=== PATIENT | female | born 1950 | race Caucasian/White ===

== ENCOUNTER → 2023-12-24 11:52 | Outpatient (REF) | payer MEDICARE, SELFPAY ==
[2023-12-24 12:40] LABS: % Eosinophils 26.6 % (0-6); % Immature Granulocytes 0.3 % (0-0.5); % Monocytes 5.7 % (1.7-9.3); % Neutrophils 45.4 % (42.2-75.2); Absolute Basophils 0.1 10^3/uL (0-0.2); Absolute Eosinophils 1.6 10^3/uL (0-0.7); Absolute Lymphocytes 1.3 10^3/uL (1.2-3.4); Absolute Monocytes 0.4 10^3/uL (0.1-0.6); Absolute Neutrophils 2.8 10^3/uL (1.4-6.5); Hematocrit 38.2 % (37.0-47.0); Hemoglobin 12.3 g/dL (12.0-16.0); Mean Corp Hgb Conc. 32.2 g/dL (33.0-37.0); Mean Corpuscular Hgb 29.1 pg (27.0-31.0); Mean Corpuscular Volume 90.5 fL (81.0-99.0); Mean Platelet Volume 9.8 fL (7.4-10.4); Nucleated Red Blood Cells % 0 %; Platelet Count 277 10^3/uL (130-400); Red Blood Cell Count 4.22 10^6/uL (4.20-5.40); Red Cell Dist. Width 14.9 % (11.5-14.5); White Blood Cell Count 6.1 10^3/uL (4.8-10.8)
[2023-12-24 12:53] LABS: ALT (SGPT) 14 U/L (0-35); AST (SGOT) 24 U/L (14-36); Albumin 3.9 g/dl (3.5-5.0); Alkaline Phosphatase 83 U/L (38-126); Blood Urea Nitrogen 20 mg/dl (7-17); Calcium 10.5 mg/dl (8.4-10.2); Carbon Dioxide 24 mmol/L (22-30); Chloride 110 mmol/L (98-107); Glucose 83 mg/dl (70-99); HDL Cholesterol 68 mg/dl; Iron 90 ug/dl (37-170); LDL Cholesterol, Calculated 48 mg/dl; Potassium 4.3 mmol/L (3.5-5.1); Sodium 137 mmol/L (135-145); Total Bilirubin 0.5 mg/dl (0.2-1.3); Total Cholesterol 135 mg/dl (50-199); Total Protein 6.5 g/dl (6.3-8.2); Triglyceride 97 mg/dl (10-149); Very Low Density Lipoprotein 19 mg/dl (0-30); eGFR 59.49
[2023-12-24 13:02] LABS: Percent Saturation 22 % (20-50); Total Iron Binding Capacity 398 ug/dl (265-497)
== END ==
LOC: REG 11:52
PROVIDERS: ATTENDING PHYSICIAN Student in an Organized Health Care Education/Training Program
DX: D50.0 Iron deficiency anemia secondary to blood loss (chronic) (principal); E78.5 Hyperlipidemia, unspecified; I10 Essential (primary) hypertension; Z00.00 Encounter for general adult medical examination without abnormal findings
CPT/HCPCS: 36415; 80053; 80061; 83540; 83550; 85025

== ENCOUNTER 2025-04-03 16:49 | Inpatient (IN) | payer MEDICARE, SELFPAY ==
[2025-04-03] VITALS (11 sets, daily range): BP systolic 113–183; BP diastolic 60–80; BMI 29.2
--- NOTE | 2025-04-03 09:45 | ED.GENMED ---
History of Present Illness
<MARCIN Yo - Last Filed: 04/03/25 18:19>
General
Chief Complaint: Breathing Problem
Source: patient
Exam Limitations: none and other
Time Seen by Provider: 04/03/25 09:28
Nursing documentation reviewed up to this point in time: agreed with
History of Present Illness
History of Present Illness:
Patient is a 74-year-old female with past medical history of MS(not currently on any medications) abdominal aortic aneurysm (diagnosed 20 years ago )which was managed with blood pressure control and not surgery, reflux presents to the ER for
evaluation. Patient ports intermittently this week she has felt like she could not get a good breath of air in and today had shortness of breath prior to arrival. She has also had heart racing/palpitations sensation.
Patient denies any associated chest pain. In addition she complains of a sensation that' blood was rushing to my abdomen.
She believes she is on amlodipine as well as metoprolol
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
Past History
<MARCIN Yo - Last Filed: 04/03/25 18:19>
Past History
ED Past Medical History: GERD, HTN, Hypercholesterolemia, Other (MS, TIA,), Other (Ischemic colitis) and Other (Left bundle branch block, anemia)
ED Past Surgical History: Gynecological
Social History
Tobacco: Former smoker
Alcohol: Occasional
Drug: None
Personal:
Living: with family
Employment: Employed
Family History
Family History: Other
Review of Systems
<MARCIN Yo - Last Filed: 04/03/25 18:19>
Review of Systems
Allergies reviewed?: Yes
All Other Systems: ROS reviewed and negative except as documented in HPI and ROS
Constitutional: Reports no symptoms
Respiratory: Reports trouble breathing
Cardiac: Reports palpitations; Denies chest pain
ABD/GI: Reports no symptoms
: Reports no symptoms
Musculoskeletal: Reports no symptoms
Skin: Reports no symptoms
Neurological: Reports no symptoms
Psychiatric: Reports no symptoms
Phy Exam
<MARCIN Yo - Last Filed: 04/03/25 18:19>
General Physical Exam
General Presentation: no apparent distress
General age: appears stated age
General Skin: warm and dry
General Habitus: normal
General Mental: alert
General Hydration: appears well hydrated
Cardiovascular Exam
Cardiovascular Exam: regular rate/rhythm, no murmur and normal peripheral pulses
Pulmonary Exam
Pulmonary Exam: lungs clear and no respiratory distress
Gastrointestinal Exam
Gastrointestinal Exam: normal bowel sounds, non tender and soft
Neurological Exam
Neurological Exam: alert and oriented x3
Musculoskeletal Exam
Musculoskeletal Exam: full ROM
Skin Exam
Skin Exam: normal color and warm/dry
Psychiatric Exam
Psychiatric Exam: normal mood/affect
Scores
<MARCIN Yo - Last Filed: 04/03/25 18:19>
Heart Failure Risk
Heart Failure Risk Score: Not Applicable
Course
<MARCIN Yo - Last Filed: 04/03/25 18:19>
Orders/Labs/Results
Orders:
Orders
04/03/25 09:13
Electrocardiogram (*1) Urgent
Reason for Study: Shortness of Breath
EKG- Treatment ONCE
04/03/25 09:43
Type+Screen Urgent
Complete Blood Count/With Diff Urgent
Comprehensive Metabolic Panel Urgent
Free T4 Urgent
NT-proBNP Urgent
Comment: ADDON
TSH Reflex To Free T4 Urgent
Comment: ADD ON
Troponin I Urgent
04/03/25 10:00
Add On- LAB Urgent
Tests Added?: tsh w/refexive t4
04/03/25 10:05
CT Abd/pelvis Angio W/wo Iv Urgent
Comment:
Reason For Exam: hx of AAA abd pain
04/03/25 Dinner
Cholesterol Lowering
At Your Request: Limited Participation
Cholesterol Lowering: Sodium, 2 Gram
04/03/25 15:09
Chest [CR Chest - 2 Views ] Urgent
Comment:
Reason For Exam: sob
04/03/25 16:11
CARDIOLOGY CONSULT Routine
Consulting Provider: Angelo Avila
Was physician already notified: Yes
04/03/25 16:13
Add On- LAB Routine
Tests Added?: proBNP
04/03/25 16:23
Admit/Transfer Patient As Directed
Co-Sign Provider:
Level of Care: Inpatient admission
Assign to:: IVU
Physician / Group: Pratibha/hospitalist
Diagnosis: bradycardia
Reason for Hospitalization: bradycardia
Expected length of stay greater than two midnights?: Yes
ELOS- Estimated Length of Stay in days: 3
I certify the patient meets the requirements for IP care: Yes
PRN Pain Medication Management As Directed
May give lesser potent ordered pain med per pt: Yes
preference::
Protocol:: Medication orders for pain may be administered in a
manner that supports deferring to patient preference
when the pt is:
- Requesting an ordered lesser potent pain medication.
Least to most potent pain medications are defined
as: acetaminophen < NSAID < tramadol < opioids
(morphine, oxycodone, hydromorphone).
- Requesting a lesser dose of the same medication IF
ORDERED.
- Requesting a less intrusive route of administration
if both routes are prescribed by the provider (PO <
IV).
04/03/25 16:24
Code Status As Directed
Resuscitation Status: Full Code
04/03/25 17:55
Acetaminophen [Tylenol] 650 mg PO Q4HPRN PRN
Bisacodyl [Dulcolax] 10 mg RECTAL [id number] PRN
Docusate W/Senna [Senokot-S] 1 tablet PO BIDPRN PRN
Ondansetron Injectable [Zofran] 4 mg IV Q6HPRN PRN
Polyethylene Glycol Powder [Miralax] 17 grams PO DAILYPRN PRN
04/03/25 17:55
Echo 2D MMode Color/Doppler Routine
Reason for Study: bradycardia
Activity As Directed
Activity Level: As Tolerated
Vital Signs As Directed
Frequency: Per unit guidelines
DX Deep Vein Thrombosis Video Routine
04/03/25 18:00
Enoxaparin Sodium [Lovenox] 40 mg SC QPM
04/03/25 22:00
Atorvastatin [Lipitor] 40 mg PO HS
Pantoprazole [Protonix] 40 mg PO HS
04/04/25 06:00
Basic Metabolic Panel IN AM
Complete Blood Count/No Diff IN AM
Magnesium IN AM
04/04/25 08:00
Lisinopril [Zestril] 5 mg PO DAILY
04/05/25 06:00
Basic Metabolic Panel IN AM
Complete Blood Count/No Diff IN AM
04/06/25 06:00
Basic Metabolic Panel IN AM
Complete Blood Count/No Diff IN AM
04/07/25 06:00
Basic Metabolic Panel IN AM
Complete Blood Count/No Diff IN AM
04/08/25 06:00
Basic Metabolic Panel IN AM
Complete Blood Count/No Diff IN AM
04/09/25 06:00
Basic Metabolic Panel IN AM
Complete Blood Count/No Diff IN AM
Abnormal Lab Results
04/03/25
09:43
RBC 3.84 L 10^6/uL
(4.20-5.40)
Hgb 11.4 L g/dL
(12.0-16.0)
Hct 35.3 L %
(37.0-47.0)
MCHC 32.3 L g/dL
(33.0-37.0)
RDW 15.5 H %
(11.5-14.5)
Absolute Eos (auto) 0.8 H 10^3/uL
(0-0.7)
Eosinophils % 14.9 H %
(0-6)
Chloride 109 H mmol/L
(98-107)
BUN 27 H mg/dl
(7-17)
Creatinine 1.1 H mg/dL
(0.6-1.0)
Calcium 10.9 H mg/dl
(8.4-10.2)
Total Protein 5.7 L g/dl
(6.3-8.2)
TSH (Reflex) 4.89 H uIU/ml
(0.47-4.68)
04/03/25 09:43
04/03/25 09:43
Vital Signs
Initial and Last Documented VS:
Initial Vital Signs
Temp Pulse Resp BP Pulse Ox
98.0 F 38 16 113/64 98
04/03/25 09:10 04/03/25 09:10 04/03/25 09:10 04/03/25 09:10 04/03/25 09:10
Last Documented Vital Signs
Temp Pulse Resp BP Pulse Ox
98.0 F 59 14 183/72 99
04/03/25 09:10 04/03/25 16:30 04/03/25 16:30 04/03/25 16:22 04/03/25 16:22
Rn Transition consulted with Physician
Rn Transition consulted with physician?: Yes
Name of Physician Consulted: Laura
<Cash Sanchez MD - Last Filed: 04/03/25 10:34>
Orders/Labs/Results
Orders:
Orders
04/03/25 09:13
Electrocardiogram (*1) Urgent
Reason for Study: Shortness of Breath
EKG- Treatment ONCE
04/03/25 09:43
Type+Screen Urgent
Complete Blood Count/With Diff Urgent
Comprehensive Metabolic Panel Urgent
Free T4 Urgent
NT-proBNP Urgent
Comment: ADDON
TSH Reflex To Free T4 Urgent
Comment: ADD ON
Troponin I Urgent
04/03/25 10:00
Add On- LAB Urgent
Tests Added?: tsh w/refexive t4
04/03/25 10:05
CT Abd/pelvis Angio W/wo Iv Urgent
Comment:
Reason For Exam: hx of AAA abd pain
04/03/25 Dinner
Cholesterol Lowering
At Your Request: Limited Participation
Cholesterol Lowering: Sodium, 2 Gram
04/03/25 15:09
Chest [CR Chest - 2 Views ] Urgent
Comment:
Reason For Exam: sob
04/03/25 16:11
CARDIOLOGY CONSULT Routine
Consulting Provider: Angelo Avila
Was physician already notified: Yes
04/03/25 16:13
Add On- LAB Routine
Tests Added?: proBNP
04/03/25 16:23
Admit/Transfer Patient As Directed
Co-Sign Provider:
Level of Care: Inpatient admission
Assign to:: IVU
Physician / Group: Pratibha/hospitalist
Diagnosis: bradycardia
Reason for Hospitalization: bradycardia
Expected length of stay greater than two midnights?: Yes
ELOS- Estimated Length of Stay in days: 3
I certify the patient meets the requirements for IP care: Yes
PRN Pain Medication Management As Directed
May give lesser potent ordered pain med per pt: Yes
preference::
Protocol:: Medication orders for pain may be administered in a
manner that supports deferring to patient preference
when the pt is:
- Requesting an ordered lesser potent pain medication.
Least to most potent pain medications are defined
as: acetaminophen < NSAID < tramadol < opioids
(morphine, oxycodone, hydromorphone).
- Requesting a lesser dose of the same medication IF
ORDERED.
- Requesting a less intrusive route of administration
if both routes are prescribed by the provider (PO <
IV).
04/03/25 16:24
Code Status As Directed
Resuscitation Status: Full Code
04/03/25 17:55
Acetaminophen [Tylenol] 650 mg PO Q4HPRN PRN
Bisacodyl [Dulcolax] 10 mg RECTAL [id number] PRN
Docusate W/Senna [Senokot-S] 1 tablet PO BIDPRN PRN
Ondansetron Injectable [Zofran] 4 mg IV Q6HPRN PRN
Polyethylene Glycol Powder [Miralax] 17 grams PO DAILYPRN PRN
04/03/25 17:55
Echo 2D MMode Color/Doppler Routine
Reason for Study: bradycardia
Activity As Directed
Activity Level: As Tolerated
Vital Signs As Directed
Frequency: Per unit guidelines
DX Deep Vein Thrombosis Video Routine
04/03/25 18:00
Enoxaparin Sodium [Lovenox] 40 mg SC QPM
04/03/25 22:00
Atorvastatin [Lipitor] 40 mg PO HS
Pantoprazole [Protonix] 40 mg PO HS
04/04/25 06:00
Basic Metabolic Panel IN AM
Complete Blood Count/No Diff IN AM
Magnesium IN AM
04/04/25 08:00
Lisinopril [Zestril] 5 mg PO DAILY
04/05/25 06:00
Basic Metabolic Panel IN AM
Complete Blood Count/No Diff IN AM
04/06/25 06:00
Basic Metabolic Panel IN AM
Complete Blood Count/No Diff IN AM
04/07/25 06:00
Basic Metabolic Panel IN AM
Complete Blood Count/No Diff IN AM
04/08/25 06:00
Basic Metabolic Panel IN AM
Complete Blood Count/No Diff IN AM
04/09/25 06:00
Basic Metabolic Panel IN AM
Complete Blood Count/No Diff IN AM
Abnormal Lab Results
04/03/25
09:43
RBC 3.84 L 10^6/uL
(4.20-5.40)
Hgb 11.4 L g/dL
(12.0-16.0)
Hct 35.3 L %
(37.0-47.0)
MCHC 32.3 L g/dL
(33.0-37.0)
RDW 15.5 H %
(11.5-14.5)
Absolute Eos (auto) 0.8 H 10^3/uL
(0-0.7)
Eosinophils % 14.9 H %
(0-6)
Chloride 109 H mmol/L
(98-107)
BUN 27 H mg/dl
(7-17)
Creatinine 1.1 H mg/dL
(0.6-1.0)
Calcium 10.9 H mg/dl
(8.4-10.2)
Total Protein 5.7 L g/dl
(6.3-8.2)
TSH (Reflex) 4.89 H uIU/ml
(0.47-4.68)
04/03/25 09:43
04/03/25 09:43
Vital Signs
Initial and Last Documented VS:
Initial Vital Signs
Temp Pulse Resp BP Pulse Ox
98.0 F 38 16 113/64 98
04/03/25 09:10 04/03/25 09:10 04/03/25 09:10 04/03/25 09:10 04/03/25 09:10
Last Documented Vital Signs
Temp Pulse Resp BP Pulse Ox
98.0 F 59 14 183/72 99
04/03/25 09:10 04/03/25 16:30 04/03/25 16:30 04/03/25 16:22 04/03/25 16:22
<MARCIN Yo - Last Filed: 04/03/25 18:19>
MDM/Problems Addressed
Differential Diagnosis Includes:
Not limited bradycardia,
MDM/Problems Addressed:
Patient is a 74-year-old female who presented with intermittent shortness of breath for the past several days. She also has a sensation of palpitations. Patient arrives however bradycardic , with a heart rate of high 30s. Patient denies any
associated chest pain. Patient initially reported she had a history of aneurysm, AAA 20 years ago that did not have surgery but was improved. CAT scan was done which was negative for any aneurysm. She had no complaints of shortness of breath here
in the ER was nontachypneic lungs are clear not hypoxic. Negative cardiac troponin no chest pain, neg chest .
Patient is not presently followed by cardiology.
The patient is in no acute distress here in the ER however remains bradycardic patient will need to be admitted and eval by cardiology.
<MARCIN Yo - Last Filed: 04/03/25 18:19>
*Critical Care Note
Total Time (30-74mins, 75-104mins- exclusive of procedures): Not Applicable
ED Attending Note
<MARCIN Yo - Last Filed: 04/03/25 18:19>
-
Portions of this chart may have been created with voice recognition software.� Occasional wrong word or��sound alike� substitutions may have occurred due to the inherent limitations of voice recognition software.
<Cash Sanchez MD - Last Filed: 04/03/25 10:34>
ED Attending Note
Patient seen and examined by attending physician: Yes
ED Attending Note:
I have seen and evaluated the patient with a [id number] encounter. I have spoken to the advance practicer provider and involved in the medical history, the physical exam, medical decision making.
Evaluation and management service: agree unless noted differently below.
Results interpretation: agree unless noted differently below.
Focused HPI: 74-year-old female with history as documented presents to the ER for evaluation of palpitations, lightheadedness, shortness of breath. Patient reports that symptoms have been intermittent for the past 5 days�variable duration this
morning had an episode that lasted for about 2 hours. She describes getting a sensation of racing heart that is associated with some lightheadedness, 'a whooshing sensation' in her abdomen with mild discomfort, shortness of breath. She has not
checked her pulse during these episodes. No clear triggering factors noted�this morning's episode started while she was sleeping and woke her up at around 5 AM and continued till around 7 AM. She denies any associated chest pain. She has not had
syncope. She denies any other complaints.
Physical exam: Bradycardia but otherwise normal vitals. She has no cardiac rubs gallops or murmurs. Lungs clear to auscultation. Abdomen soft and nontender with no palpable mass. No edema in her extremities. Good pulses throughout.
Medical Decision Makin-year-old female presents for evaluation of intermittent symptoms as described above. Triage was bradycardic with heart rate 30s to 40s but otherwise normal vitals. EKG shows sinus bradycardia. Physical exam as above.
Check labs including CBC and CMP, troponin, thyroid studies. Will check chest x-ray. Check CT with reported lightheadedness and abdominal discomfort/'whooshing' in the setting of known AAA. Monitor very closely on telemetry and reassess after the
above.
Discharge Plan
Departure
Patient Disposition: Admit
Date of Disposition: 04/03/25
Time of Disposition: 16:03
Admit to: Telemetry
Admit to doctor: hospitalist
Presentation/result/management discussed w/ accepting MD/DO: Hospitalist
Patient with high blood pressure during this ER visit?: Yes
Condition: Fair
Covid-19: Not Applicable
Discharge Problem:
Symptomatic bradycardia
Interventions
Interventions:
*Risk Screen - Suicide Last Done: 04/03/25 18:15
*Neglect/Abuse Screening Last Done: 04/03/25 09:10
*ED- Fall Risk Assessment Last Done: 04/03/25 10:00
ED- Cardiac Assessment Last Done: 04/03/25 16:20
ED- Pulmonary Assessment Last Done: 04/03/25 10:00
[2025-04-03 09:56] LABS: % Basophils 1.2 % (0-2); % Eosinophils 14.9 % (0-6); % Immature Granulocytes 0.2 % (0-0.5); % Lymphocytes 26.6 % (20.5-51.1); % Monocytes 6.7 % (1.7-9.3); % Neutrophils 50.4 % (42.2-75.2); Absolute Basophils 0.1 10^3/uL (0-0.2); Absolute Eosinophils 0.8 10^3/uL (0-0.7); Absolute Lymphocytes 1.5 10^3/uL (1.2-3.4); Absolute Monocytes 0.4 10^3/uL (0.1-0.6); Absolute Neutrophils 2.8 10^3/uL (1.4-6.5); Hematocrit 35.3 % (37.0-47.0); Hemoglobin 11.4 g/dL (12.0-16.0); Mean Corp Hgb Conc. 32.3 g/dL (33.0-37.0); Mean Corpuscular Hgb 29.7 pg (27.0-31.0); Mean Corpuscular Volume 91.9 fL (81.0-99.0); Mean Platelet Volume 10.3 fL (7.4-10.4); Nucleated Red Blood Cells % 0 %; Platelet Count 240 10^3/uL (130-400); Red Blood Cell Count 3.84 10^6/uL (4.20-5.40); Red Cell Dist. Width 15.5 % (11.5-14.5); White Blood Cell Count 5.6 10^3/uL (4.8-10.8)
[2025-04-03 10:07] LABS: ALT (SGPT) 11 U/L (0-35); AST (SGOT) 20 U/L (14-36); Albumin 3.5 g/dl (3.5-5.0); Alkaline Phosphatase 64 U/L (38-126); Blood Urea Nitrogen 27 mg/dl (7-17); Calcium 10.9 mg/dl (8.4-10.2); Carbon Dioxide 25 mmol/L (22-30); Chloride 109 mmol/L (98-107); Glucose 91 mg/dl (70-99); Potassium 4.5 mmol/L (3.5-5.1); Sodium 139 mmol/L (135-145); Total Bilirubin 0.4 mg/dl (0.2-1.3); Total Protein 5.7 g/dl (6.3-8.2); eGFR 52.73
[2025-04-03 10:18] LABS: Troponin I 0.012 ng/ml
[2025-04-03 12:56] LABS: TSH Reflex To Free T4 4.89 uIU/ml (0.47-4.68)
--- NOTE | 2025-04-03 16:08 | HPS.HSE ---
Family Physician
-
Family Physician: NOT KNOW UNKNOWN - PT DOES
Chief Complaint
-
Shortness of breath progressively worsening over 1 week,
Heart racing/palpitation
History of Present Illness
HPI: 74-year-old female with past medical history of MS (not currently on any medications), abdominal aortic aneurysm (diagnosed 20 years ago, managed with blood pressure control and not surgery), reflux; p/w SOB for weeks, heart racing/palpitations
and was found to be bradycardic in the ED.
She has not had a physician/allergy/immunology in years.
Medical History
Past Medical History
Past Medical History: Reports Other
Additional Past Medical History:
MS (not currently on any medications),
abdominal aortic aneurysm (diagnosed 20 years ago, managed with blood pressure control and not surgery),
acid reflux
Past Surgical History: Reports None
Social History
Tobacco: Non-smoker
Family History
Family History: Not pertinent
Allergies / Home Medications
Allergies reflects when Allergies were last updated in [facility].
Home Medications with original date entered in [facility]
Allergy/Medication List:
Medications on admission are unable to be verified or confirmed at this time.
Review of Systems
-
Cardiac: Reports See HPI and Palpitations (intermittent); Denies Chest Pain
Abdomen/GI: Denies Abdominal Pain
Physical Exam
Vital Signs
Vital Signs
Temp Pulse Resp BP Pulse Ox
36.7 C 46 8 158/70 98
04/03/25 09:10 04/03/25 13:45 04/03/25 13:45 04/03/25 13:00 04/03/25 13:45
Physical Exam
General: Well Developed, Well Nourished, No Apparent Distress, Comfortable and Conversant
HEENT: NormoCephalic, Moist mucous membranes and Atraumatic
Respiratory: Clear and Non Labored Respirations; No Accessory Resp Muscle Use
Cardiac: S1/S2, Regular Rhythm and Bradycardia; No Murmur or Rub
GI: Soft, Non Tender, Non Distended and Normal Bowel Sounds; No Organomegaly
Rectal: Deferred by Provider
Musculoskeletal: No Clubbing, No Cyanosis and No Edema
Skin: No Rash
Neuro: Awake and Alert
Psych: Calm and Intact Judgment/Insight
Laboratory Results
-
04/03/25
04/03/25
Laboratory Results
Total Bilirubin 0.4 mg/dl (0.2-1.3) 04/03/25
AST 20 U/L (14-36) 04/03/25
ALT 11 U/L (0-35) 04/03/25
Alkaline Phosphatase 64 U/L (38-126) 04/03/25
Troponin I 0.012 ng/ml 04/03/25
Data Reviewed
-
Lab Data: Labs Reviewed by me
Impression/Plan
-
HPI: 74-year-old female with past medical history of MS (not currently on any medications), abdominal aortic aneurysm (diagnosed 20 years ago, managed with blood pressure control and not surgery), reflux; p/w SOB for weeks, heart racing/palpitations
and was found to be bradycardic in the ED.
She has not had a physician/allergy/immunology in years.
A/P:
# Sinus bradycardia
tele monitor
Card CS
# SOB, due to ?new onset acute CHF, unknown type
check proBNP
check echo
Follow CXR report, NAD on my review
Card CS
# AAA
CT AP showed no abdominal aortic aneurysm or dissection.
# history of MS (not currently on any medications)
# GERD
PPI
# Possible subclinical hyperthyroidism
TSH 4.89, FT4 1.40, recc to follow up TSH reflex FT4 in 4-6 weeks with PCP
DVT ppx: Lovenox SQ
FC
[2025-04-03 17:21] LABS: NT-proBNP 1510 pg/ml
--- NOTE | 2025-04-03 18:32 | PTCARENOTE ---
received pt from the ER into 2251, sinus bradycardia on tele w HR 40's, BP 164/79, + peripheral pulses, trace edema to bilateral lower extremities. Lungs diminished, pox 98% on RA. +bs, denies nausea/vomiting/diarrhea. Voids spontaneously. PIV
flushes easily. Plan of care reviewed w the pt and questions encouraged.
[2025-04-03] MEDS: LOVENOX 40 MG SC (18:45)
[2025-04-03] MEDS: LIPITOR 40 MG PO (21:46)
[2025-04-03] MEDS: PROTONIX 40 MG PO (21:46)
[2025-04-03] MEDS: MELATONIN 5 MG PO (22:20)
--- NOTE | 2025-04-03 23:10 | PTCARENOTE ---
Assumed care of the pt @ 1900. Pt is AAOx3 SB on the monitor VSS pacer pads on. Pt had concerns about some home meds not ordered. OMAYRA Manning NP reviewed meds and ordered as appropriate. Call lord within reach.
[2025-04-04] VITALS (7 sets, daily range): BP systolic 147–170; BP diastolic 53–72; BMI 29.1
[2025-04-04 03:46] LABS: Hematocrit 33.5 % (37.0-47.0); Mean Corp Hgb Conc. 32.8 g/dL (33.0-37.0); Mean Corpuscular Hgb 30.1 pg (27.0-31.0); Mean Corpuscular Volume 91.5 fL (81.0-99.0); Mean Platelet Volume 10.2 fL (7.4-10.4); Platelet Count 251 10^3/uL (130-400); Red Blood Cell Count 3.66 10^6/uL (4.20-5.40); Red Cell Dist. Width 15.3 % (11.5-14.5); White Blood Cell Count 5.8 10^3/uL (4.8-10.8)
[2025-04-04 04:08] LABS: Blood Urea Nitrogen 25 mg/dl (7-17); Calcium 10.5 mg/dl (8.4-10.2); Carbon Dioxide 24 mmol/L (22-30); Chloride 110 mmol/L (98-107); Estimated Creatinine Clearance 47 ml/min; Glucose 74 mg/dl (70-99); Magnesium 2.1 mg/dl (1.6-2.3); Potassium 4.4 mmol/L (3.5-5.1); Sodium 140 mmol/L (135-145); eGFR 52.73
[2025-04-04] MEDS: LOPID PO (06:31)
[2025-04-04] MEDS: ZESTRIL 5 MG PO (08:43)
[2025-04-04] MEDS: LOPID 600 MG PO ×2 (08:46→20:22)
--- NOTE | 2025-04-04 09:37 | W.PN.HOSP.TC ---
Today's Communication/Plan
-
see A/P
Assessment / Plan
Assessment / Plan
HPI: 74-year-old female with past medical history of MS (not currently on any medications), abdominal aortic aneurysm (diagnosed 20 years ago, managed with blood pressure control and not surgery), reflux; p/w SOB for weeks, heart racing/palpitations
and was found to be bradycardic in the ED.
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
A/P:
# Sinus bradycardia
tele monitor
check echo
Card CS
# SOB, due to ?new onset acute CHF vs ?ACS
proBNP 1510
check echo
CXR No acute cardiopulmonary process.
Card on board, plan for stress test
# AAA
CT AP showed no abdominal aortic aneurysm or dissection.
# history of MS (not currently on any medications)
# GERD
PPI
# Possible subclinical hyperthyroidism
TSH 4.89, FT4 1.40, recc to follow up TSH reflex FT4 in 4-6 weeks with PCP
# Chronic insomnia
Cont FOOTBALL SCOUT trazodone at decreased dose 100 mg HS (FOOTBALL SCOUT 150 mg HS), pt agreeable
DVT ppx: Lovenox SQ
FC
DW Card
DW RN
Anticipated Discharge: 24 - 48 hours
Subjective/Interval History
-
Date of Service: April 04, 2025
Objective Data
-
Labs:
Laboratory Results
04/04/25
03:08
WBC 5.8
Hgb 11.0 L
Hct 33.5 L
Plt Count 251
Sodium 140
Potassium 4.4
Chloride 110 H
Carbon Dioxide 24
BUN 25 H
Creatinine 1.1 H
Glucose 74
Calcium 10.5 H
Vital Signs:
Vital Signs
Temp Pulse Resp BP Pulse Ox
36.5 C 52 20 154/69 99
04/04/25 07:47 04/04/25 08:43 04/04/25 07:47 04/04/25 08:43 04/04/25 07:47
Review of Systems
-
History Source: Patient
All other systems: Reviewed and negative
Respiratory: Reports Trouble Breathing (occasionally)
Physical Exam
-
General: Well Developed, Well Nourished, No Apparent Distress, Comfortable and Conversant; Negative Respiratory Distress
HEENT: Normocephalic, Atraumatic, Nose Appears Normal and Ears Appear Normal; Negative Oxygen
Respiratory: Clear to Auscultation and Non Labored Respirations; Negative Accessory Resp Muscle Use
Cardiac: Regular Rhythm and S1/S2
GI: Soft, Nontender, Nondistended and Normal Bowel Sounds
Skin: Warm and Dry
Neuro: Awake, Alert, Oriented, AO x 3 and Nonfocal/Grossly Intact
Psych: Calm and Intact Judgement/Insight
Data Reviewed
-
Diagnostic Radiology: Image personally visualized and interpreted and Report Reviewed by me
Labs: Labs Reviewed by me
--- NOTE | 2025-04-04 09:46 | CON.CAR ---
Consultation
Consultation Request
Date/Time Consultation Requested: 04/04/25, 8am
Date/Time Consultation Performed: 04/04/25, 9am
Requesting Provider: Pratibha
Performing Provider: Margarita
Reason for Consultation: SOB, bradycardia
Medical History
-
Chief Complaint: SOB
History of Present Illness:
74 yo female with PMH of LBBB, HTN, hyperlipidemia is admitted with SOB, dizziness. Over the past week, has not more SOB. Also sensation of palps, dizziness. No syncope. No chest pain. No edema. No clear exertional correlation.
Past Medical History
Past Medical History: Arrhythmias (LBBB), HTN and Hypercholesterolemia
Social History
Tobacco: Non-Smoker
Family History
Family History: Early CAD (none)
Allergies / Home Medications
Allergy/AdvReac Type Severity Reaction Status Date / Time
codeine Allergy Itching Verified 04/03/25 09:12
�Medication �Instructions �Recorded �Confirmed �Type
atorvastatin 40 mg tablet 40 mg PO HS High cholesterol 08/17/16 04/04/25 History
gemfibrozil 600 mg tablet 600 mg PO BID High cholesterol 08/17/16 04/04/25 History
trazodone 150 mg tablet 150 mg PO HS Mental Health/Anxiety 08/17/16 04/04/25 History
cyanocobalamin (vitamin B-12) 1,000 mcg PO DAILY Supplement 12/10/16 04/04/25 History
1,000 mcg tablet
lisinopril 5 mg tablet 5 mg PO DAILY #20 tabs 10/30/20 04/04/25 Rx
Fluvoxamine Maleate 100 mg PO HS Mental Health/Anxiety 03/23/22 04/04/25 History
Review of Systems
-
All other systems: Negative unless noted
Respiratory: Trouble Breathing
Cardiac: Palpitations
Neurological: Dizzy
Physical Exam
Vital Signs
Temp Pulse Resp BP Pulse Ox
97.7 F 52 20 154/69 99
04/04/25 07:47 04/04/25 08:43 04/04/25 07:47 04/04/25 08:43 04/04/25 07:47
Lab Results
04/04/25 03:08
04/04/25 03:08
Troponin I 0.012 ng/ml 04/03/25 09:43
Uyh-R-Vtikivazgex Pept 1510 pg/ml 04/03/25 09:43
Physical Exam
General: Well Nourished
HEENT: Normocephalic and Anicteric
Respiratory: Clear and Non Labored Respirations
Cardiac: S1/S2 (normal), Regular Rhythm, Murmur (none) and JVD (none)
Musculoskeletal: No Clubbing, No Cyanosis and No Edema
Skin: Warm and Dry
Neuro: AO x 3
Psych: Calm
Impression / Plan
-
74 yo female with PMH of LBBB, HTN, hyperlipidemia is admitted with SOB, dizziness.
# SOB, dizziness
-exam not consistent with HF
-cath 2017: clean cors
-tele and EKG with sinus renaldo, LBBB
-trop wnl
-monitor tele for more advanced heart block
-echo and lexiscan nuclear stress test in AM
# Renaldo, sinus with LBBB
-not convinced of symptomatic bradycardia at this time
-trend tele for more advanced heart block
# HTN
-chronic: cont lisinopril
# Hyperlipidemia
-chronic: cont statin
Data Reviewed
-
EKG: Tracing Personally Visualized and interpreted (SB, LBBB)
Medical Tests (Nuc Med, Echo etc): Report Reviewed by me (cath 2017: clean cors)
Labs: Labs Reviewed by me
[2025-04-04] MEDS: NORVASC 10 MG PO (14:46)
[2025-04-04] MEDS: LOVENOX 40 MG SC (18:13)
--- NOTE | 2025-04-04 19:13 | PTCARENOTE ---
~[id number]: handoff report received from nightshift RN. PT Aox4, SB BBB, HR 50s with frequent pauses (2.1-2.5 seconds). With a pause, HR will drop to 30s and patient become symptomatic with dizziness, Manuel Avila made aware, no new orders at this time.
Pt denies pain and standby assist in room. Pt SBP around 1100 was 184, per patient she takes a second BP medication at home but does not remember what it is, Manuel Avila made aware, no new orders at this time. All needs met, call lord within reach.
~1200: Per patient, the second BP medication that she takes at home is is 10mg amlodipine in the morning. Home medication list updated, informed Dr. Avila, no new orders at this time.
~1300: Amlodipine 10mg orderd per Dr. Avila
~[id number]: family visiting at this time. VSS, patient NSR 60s-70s at this time. All needs met, call lord within reach. Handoff report given to nightshift RN.
--- NOTE | 2025-04-04 21:57 | PTCARENOTE ---
Assumed care of the pt @ 1900. Pt is AAOx3 SR 60's on the monitor VSS. POC discussed with pt. verbalized understanding. NPO after midnight for Stress Test. Call lord within reach.
[2025-04-04] MEDS: DESYREL 100 MG PO (22:10)
[2025-04-04] MEDS: PROTONIX 40 MG PO (22:11)
[2025-04-04] MEDS: LIPITOR 40 MG PO (22:11)
[2025-04-04] MEDS: LUVOX 100 MG PO (22:11)
[2025-04-04] MEDS: APRESOLINE 5 MG IV (23:06)
--- NOTE | 2025-04-04 23:36 | PTCARENOTE ---
Pt's bp 169/67 asymptomatic. [facility] [employer] notified and ordered 5 mg Hydralazine IVP.
[2025-04-05] VITALS (15 sets, daily range): BP systolic 130–177; BP diastolic 56–87
[2025-04-05 04:58] LABS: Hematocrit 33.7 % (37.0-47.0); Hemoglobin 10.9 g/dL (12.0-16.0); Mean Corp Hgb Conc. 32.3 g/dL (33.0-37.0); Mean Corpuscular Hgb 28.8 pg (27.0-31.0); Mean Corpuscular Volume 89.2 fL (81.0-99.0); Mean Platelet Volume 10.1 fL (7.4-10.4); Platelet Count 235 10^3/uL (130-400); Red Blood Cell Count 3.78 10^6/uL (4.20-5.40); White Blood Cell Count 6.2 10^3/uL (4.8-10.8)
[2025-04-05 05:18] LABS: Blood Urea Nitrogen 22 mg/dl (7-17); Calcium 10.5 mg/dl (8.4-10.2); Carbon Dioxide 22 mmol/L (22-30); Chloride 114 mmol/L (98-107); Estimated Creatinine Clearance 51 ml/min; Glucose 82 mg/dl (70-99); Potassium 4.2 mmol/L (3.5-5.1); Sodium 141 mmol/L (135-145); eGFR 59.12
--- NOTE | 2025-04-05 07:56 | PTCARENOTE ---
patient to Echo and stress test via stretcher accompanied by vol. services.
--- NOTE | 2025-04-05 09:12 | W.PN.HOSP.TC ---
Today's Communication/Plan
-
see A/P
Assessment / Plan
Assessment / Plan
HPI: 74-year-old female with past medical history of MS (not currently on any medications), abdominal aortic aneurysm (diagnosed 20 years ago, managed with blood pressure control and not surgery), reflux; p/w SOB for weeks, heart racing/palpitations
and was found to be bradycardic in the ED.
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
A/P:
# Symptomatic sinus bradycardia
tele monitor
Card on board, planning PPM for Symptomatic bradycardia
# SOB, due to ACS
proBNP 1510
echo unrevealing: Normal biventricular size and systolic function without regional wall motion abnormality. Stage I diastolic dysfunction suggestive of abnormal relaxation. Compared to prior from August 09, 2016, no significant change.
s/p Stress test, small area of ischemia involving the inferior wall and small apical infarct. Stress Risk is moderate risk study (1 - 3% MT or /year).
For cardiac cath today by Card
of note, CXR No acute cardiopulmonary process.
# AAA
CT AP showed no abdominal aortic aneurysm or dissection.
# history of MS (not currently on any medications)
# GERD
PPI
# Possible subclinical hyperthyroidism
TSH 4.89, FT4 1.40, recc to follow up TSH reflex FT4 in 4-6 weeks with PCP
# Chronic insomnia
Cont FOOD MOBILE DRIVER trazodone at decreased dose 100 mg HS (FOOD MOBILE DRIVER 150 mg HS), pt agreeable
DVT ppx: Lovenox SQ
FC
DW RN
Anticipated Discharge: 24 - 48 hours
Subjective/Interval History
-
Date of Service: April 05, 2025
Objective Data
-
Labs:
Laboratory Results
04/05/25
04:30
WBC 6.2
Hgb 10.9 L
Hct 33.7 L
Plt Count 235
Sodium 141
Potassium 4.2
Chloride 114 H
Carbon Dioxide 22
BUN 22 H
Creatinine 1.0
Glucose 82
Calcium 10.5 H
Vital Signs:
Vital Signs
Temp Pulse Resp BP Pulse Ox
36.8 C 71 16 151/87 97
04/05/25 07:56 04/05/25 07:56 04/05/25 07:56 04/05/25 07:56 04/05/25 07:56
I&O
04/04/25 04/05/25 04/06/25
06:59 06:59 06:59
Intake Total 240 / 240
Balance 240 / 240
Review of Systems
-
History Source: Patient
All other systems: Reviewed and negative
Respiratory: Reports Trouble Breathing (occasionally)
Physical Exam
-
General: Well Developed, Well Nourished, No Apparent Distress, Comfortable and Conversant; Negative Respiratory Distress
HEENT: Normocephalic, Atraumatic, Nose Appears Normal and Ears Appear Normal; Negative Oxygen
Respiratory: Clear to Auscultation and Non Labored Respirations; Negative Accessory Resp Muscle Use
Cardiac: Regular Rhythm and S1/S2
GI: Soft, Nontender, Nondistended and Normal Bowel Sounds
Skin: Warm and Dry
Neuro: Awake, Alert, Oriented, AO x 3 and Nonfocal/Grossly Intact
Psych: Calm and Intact Judgement/Insight
Data Reviewed
-
Diagnostic Radiology: Image personally visualized and interpreted and Report Reviewed by me
Labs: Labs Reviewed by me
[2025-04-05] MEDS: AMINOPHYLLINE 75 MG IV (10:40)
[2025-04-05] MEDS: LEXISCAN 0.4 MG IV (10:40)
[2025-04-05] MEDS: ZESTRIL 5 MG PO (11:58)
[2025-04-05] MEDS: LOPID 600 MG PO ×2 (11:58→19:41)
[2025-04-05] MEDS: NORVASC 10 MG PO (11:59)
--- NOTE | 2025-04-05 12:17 | W.PN.CD ---
Today's Communication / Plan
-
- ECHO and stress test today
- Possible PPM today
Impression / Plan
-
74 yo female with PMH of LBBB, HTN, hyperlipidemia is admitted with SOB, dizziness.
# SOB, dizziness
-exam not consistent with HF
-cath 2017: clean cors
-tele and EKG with sinus renaldo, LBBB
-trop wnl
-With LBBB and intermittent AV block and sinus renaldo, will obtain stress test
-monitor tele for more advanced heart block
-echo and lexiscan nuclear stress test today
# Renaldo, sinus with LBBB
-Patient had some pauses and non-conducted P waves that reproduced her symptoms
-Symptomatic bradycardia. The EKG showed heart rate goes down to 30s. But the pauses give symptoms.
-With symptomatic renaldo, will need a pacemaker. The chronic LBBB warrants LANDSCAPE SUPERVISOR-P
-Stress test today and if negative, will proceed to LANDSCAPE SUPERVISOR-P; if positive for RCA disease then will proceed to cath first.
# HTN
-chronic: cont lisinopril
# Hyperlipidemia
-chronic: cont statin
Physical Exam
Vital Signs/Labs
Vital Signs
Temp Pulse Resp BP Pulse Ox
98.0 F 80 16 177/86 97
04/05/25 12:03 04/05/25 12:03 04/05/25 12:03 04/05/25 12:03 04/05/25 07:56
04/04/25 04/05/25 04/06/25
06:59 06:59 06:59
Actual Weight 79.4 kg
04/05/25 04:30
04/05/25 04:30
Magnesium 2.1 mg/dl (1.6-2.3) 04/04/25 03:08
Free T4 1.40 ng/dl (0.78-2.19) 04/03/25 09:43
04/03/25
09:43
Sep-Z-Jkhheqgewhy Pept 1510
LAB Results
04/03/25
09:43
Troponin I 0.012
Physical Exam
Constitutional: No acute distress and Comfortable
EENT: Anicteric and Moist mucous membranes
Cardiovascular: Rhythm & rate is regular, Pedal edema is absent and JVD pressure is normal
Respiratory: Respiratory effort normal, Lungs clear to auscul. and Wheeze Absent
GI: Soft, Distention absent, Non tender and Normal bowel sounds
Neuro/Psych: Alert, Oriented and AO x 3
Data Reviewed
-
Date of Service: April 05, 2025
Medical Decision Making: Reviewed Test Results, Test Interpretation and Review of Case with other Provider
EKG: Tracing Personally Visualized and interpreted
X-Ray/CT/US/MRI/NUC/PET: Report Reviewed by me
Medical Tests (PFT, Pathology etc): Image Personally Visualized and interpreted
Labs: Labs Reviewed by me
Old Records: Reviewed
--- NOTE | 2025-04-05 13:06 | PTCARENOTE ---
patient has returned from echo and stress test, Dr. Escudero in room signing consent for permanent pacemaker, as soon as skilled laborer came to get her, her stress test came back positive therefore she will go for heart cath today followed by permanent
pacemaker. patient is agreeable to all.
--- NOTE | 2025-04-05 13:36 | CM ---
Chart reviewed. Patient is independent of ADLS, lives with her in a 2 [address], 0 MAGGIE, 0 DME. Patient requested an Advance Directive. I gave her a copy. Plan is for the patient to return home. CM to follow
--- NOTE | 2025-04-05 14:32 | PTCARENOTE ---
report given to sleep lab technologist.
--- NOTE | 2025-04-05 15:43 | PTCARENOTE ---
patient returned from laboratory assistant with attempt x 2 thru the right radial unsuccessful, dsg. D/I, distal pulse palpable. right fem artery was angio sealed, dsg. D/I, distal pulse palpable. patient remains on bedrest.
--- NOTE | 2025-04-05 15:53 | ITS.CL.CATH ---
Tool Keeper - Catheterization
Cardiac Catheterization
Procedure Report:
LEFT HEART CATHETERIZATION
Date of Procedure: April 05, 2025
Referring: Dr. Angelo Avila
PROCEDURES:
1. Left heart catheterization with coronary and single-plane left ventriculography
INDICATION: Shortness of breath, dizziness and bradycardia. Chronic left bundle branch block
ACCESS: Right common femoral artery, 6 English sheath using ultrasound guidance and micropuncture. Radial access was attempted with a percutaneous access needle advanced into the right radial artery. Unfortunately, a guidewire could never be
advanced well beyond the needle tip without encountering resistance. Excellent pulsatile flow was obtained on several occasions but the wire would never passed distally. Ultimately decision was made to change access to the right common femoral
artery using ultrasound guidance
HEMODYNAMICS : (mmHg)
AO (s/d) : 185/72
LV (s/d) : 189/12
LVEDP : 23
CORONARY FINDINGS
DOMINANCE: Right
LEFT MAIN: Normal
LEFT ANTERIOR DESCENDING: The LAD arises normally from the left main and runs in the anterior interventricular groove. The LAD is widely patent and supplies several small diagonal branches. The LAD reaches but does not wraparound the apex and
tapers distally
RAMUS: Moderate to large caliber ramus intermedius that is widely patent
CIRCUMFLEX: The circumflex appears angiographically normal
RIGHT CORONARY ARTERY: The right coronary artery is a dominant vessel is widely patent over its course
VENTRICULOGRAPHY: Left ventriculography is performed in PAYAN projection. The visually estimated ejection fraction is 45-50% with mild global hypokinesis
SEDATION: 42 minutes of procedural sedation was utilized. An independent director medical affairs was present to assist with and help manage the patient's level of consciousness and physiologic status.
RADIATION SUMMARY: Fluoro Time (min): 2.2, Dose (mGy): 335, DAP (Gy.cm2) : 28.2
Closure Device: 6 English Angio-Seal RFA
CONCLUSIONS
1. Normal coronary arteries
2. Low normal to mildly reduced LVEF
Copy to: Dr. Angelo Avila
[2025-04-05] MEDS: LOVENOX 40 MG SC (18:23)
--- NOTE | 2025-04-05 20:47 | PTCARENOTE ---
Assumed care on pt at 1900, resting in bed with no complaints of pain or SOB. R radial and R femoral dsg CDI, no swelling or bruising around dsg. Good distal pulses to upper and lower extremities, see worklist charting. SR w/ bbb on the monitor and
HR 60's. BP stable. Call lord within reach, POC ongoing.
[2025-04-05] MEDS: DESYREL 100 MG PO (22:11)
[2025-04-05] MEDS: PROTONIX 40 MG PO (22:11)
[2025-04-05] MEDS: LUVOX 100 MG PO (22:11)
[2025-04-05] MEDS: LIPITOR 40 MG PO (22:12)
[2025-04-06] VITALS (15 sets, daily range): BP systolic 115–161; BP diastolic 57–76; BMI 28.7
[2025-04-06 05:14] LABS: Mean Corp Hgb Conc. 32.4 g/dL (33.0-37.0); Mean Corpuscular Hgb 29.3 pg (27.0-31.0); Mean Corpuscular Volume 90.4 fL (81.0-99.0); Mean Platelet Volume 9.4 fL (7.4-10.4); Platelet Count 223 10^3/uL (130-400); Red Blood Cell Count 3.76 10^6/uL (4.20-5.40); Red Cell Dist. Width 15.4 % (11.5-14.5); White Blood Cell Count 4.7 10^3/uL (4.8-10.8)
[2025-04-06 05:25] LABS: Blood Urea Nitrogen 18 mg/dl (7-17); Calcium 10.3 mg/dl (8.4-10.2); Carbon Dioxide 20 mmol/L (22-30); Chloride 118 mmol/L (98-107); Estimated Creatinine Clearance 51 ml/min; Glucose 99 mg/dl (70-99); Potassium 3.9 mmol/L (3.5-5.1); Sodium 142 mmol/L (135-145); eGFR 59.12
--- NOTE | 2025-04-06 05:32 | PTCARENOTE ---
Pt NPO since midnight for possible procedure today. Remained pain free all shift. SR on the monitor, HR 60's. Pox 94-97% RA. Dsg to R radial and R groin CDI. + pulses. Call lord within reach.
--- NOTE | 2025-04-06 07:38 | W.PN.CD ---
Today's Communication / Plan
-
- BiV PPM today
Impression / Plan
-
74 yo female with PMH of LBBB, HTN, hyperlipidemia is admitted with SOB, dizziness.
# SOB, dizziness
-exam not consistent with HF
-cath 2017: clean cors
-tele and EKG with sinus renaldo, LBBB
-trop wnl
-With LBBB and intermittent AV block and sinus renaldo, will obtain stress test
-monitor tele for more advanced heart block
-echo 04/05/25 showed normal BiV with mild and mild AI.
-lexiscan nuclear stress test 04/05/25 - showed small area of ischemia involving the inferior wall and small apical infarct.
-Systolic function is mildly reduced. The ejection fraction is 44%.
-Left heart cath 04/05/25- radial could not advance the wire and pandey femoral access with normal cors but had midly reduced systolic functions. LVEF 45%
# Renaldo, sinus with LBBB
-Patient had some pauses and non-conducted P waves that reproduced her symptoms
-Symptomatic bradycardia. The EKG showed heart rate goes down to 30s. But the pauses give symptoms.
-With mildy reduced systolic functions along with LBBB, COPYIST might be helpful.
-With symptomatic renaldo, will need a pacemaker. The chronic LBBB warrants COPYIST-P
-Stress test today and if negative, will proceed to COPYIST-P; if positive for RCA disease then will proceed to cath first.
# HTN
-chronic: cont lisinopril
# Hyperlipidemia
-chronic: cont statin
Physical Exam
Vital Signs/Labs
Vital Signs
Temp Pulse Resp BP Pulse Ox
98.3 F 57 18 146/66 95
04/06/25 07:30 04/06/25 05:15 04/06/25 07:30 04/06/25 04:13 04/06/25 07:30
04/05/25 04/06/25 04/07/25
06:59 06:59 06:59
Actual Weight 78.3 kg
04/06/25 04:45
04/06/25 04:45
Magnesium 2.1 mg/dl (1.6-2.3) 04/04/25 03:08
Free T4 1.40 ng/dl (0.78-2.19) 04/03/25 09:43
04/03/25
09:43
Ogn-F-Oajgqgglljt Pept 1510
LAB Results
04/03/25
09:43
Troponin I 0.012
Physical Exam
Constitutional: No acute distress and Comfortable
EENT: Anicteric and Moist mucous membranes
Cardiovascular: Rhythm & rate is regular, Pedal edema is absent and JVD pressure is normal
Respiratory: Respiratory effort normal, Lungs clear to auscul. and Wheeze Absent
GI: Soft, Non tender and Normal bowel sounds
Neuro/Psych: Alert, Oriented and AO x 3
Other: Cath Site and Cardiac Device Site
Data Reviewed
-
Date of Service: April 06, 2025
Medical Decision Making: Reviewed Test Results, Test Interpretation and Review of Case with other Provider
EKG: Tracing Personally Visualized and interpreted
Echo: Report Reviewed by me
X-Ray/CT/US/MRI/NUC/PET: Image Personally Visualized and interpreted
Medical Tests (PFT, Pathology etc): Image Personally Visualized and interpreted
Labs: Labs Reviewed by me
Old Records: Reviewed
[2025-04-06] MEDS: ZESTRIL 5 MG PO (07:59)
[2025-04-06] MEDS: NORVASC 10 MG PO (08:01)
[2025-04-06] MEDS: LOPID 600 MG PO ×2 (08:02→19:54)
[2025-04-06] MEDS: FLUSH (NSS) 1 FLUSH IV (08:02)
--- NOTE | 2025-04-06 11:26 | W.PN.HOSP.TC ---
Today's Communication/Plan
-
for PPM today
Assessment / Plan
Assessment / Plan
HPI: 74-year-old female with past medical history of MS (not currently on any medications), abdominal aortic aneurysm (diagnosed 20 years ago, managed with blood pressure control and not surgery), reflux; p/w SOB for weeks, heart racing/palpitations
and was found to be bradycardic in the ED.
She has not had a human services care specialist in years.
A/P:
# Symptomatic sinus bradycardia
tele monitor
Card on board, planning PPM for Symptomatic bradycardia 04/06
# SOB, possibly related to symptomatic bradycardia
proBNP 1510
echo unrevealing: Normal biventricular size and systolic function without regional wall motion abnormality. Stage I diastolic dysfunction suggestive of abnormal relaxation. Compared to prior from August 09, 2016, no significant change.
s/p Stress test, small area of ischemia involving the inferior wall and small apical infarct. Stress Risk is moderate risk study (1 - 3% [place] or /year).
s/p cardiac cath 04/05, Normal coronary arteries
for BiV PPM today
of note, CXR No acute cardiopulmonary process.
# AAA
CT AP showed no abdominal aortic aneurysm or dissection.
# history of MS (not currently on any medications)
# GERD
PPI
# Possible subclinical hyperthyroidism
TSH 4.89, FT4 1.40, recc to follow up TSH reflex FT4 in 4-6 weeks with PCP
# Chronic insomnia
Cont COMMERCIAL INTELLIGENCE MANAGER trazodone at decreased dose 100 mg HS (COMMERCIAL INTELLIGENCE MANAGER 150 mg HS), pt agreeable
DVT ppx: Lovenox SQ
FC
DW RN
Anticipated Discharge: Within 24 hours
Subjective/Interval History
-
Date of Service: April 06, 2025
Objective Data
-
Labs:
Laboratory Results
04/06/25
04:45
WBC 4.7 L
Hgb 11.0 L
Hct 34.0 L
Plt Count 223
Sodium 142
Potassium 3.9
Chloride 118 H
Carbon Dioxide 20 L
BUN 18 H
Creatinine 1.0
Glucose 99
Calcium 10.3 H
Vital Signs:
Vital Signs
Temp Pulse Resp BP Pulse Ox
36.8 C 56 18 150/70 95
04/06/25 07:30 04/06/25 11:00 04/06/25 07:30 04/06/25 08:01 04/06/25 07:30
I&O
04/05/25 04/06/25 04/07/25
06:59 06:59 06:59
Intake Total 240 / 240 480 / 480
Balance 240 / 240 480 / 480
Review of Systems
-
History Source: Patient
All other systems: Reviewed and negative
Respiratory: Reports Trouble Breathing (occasionally)
Physical Exam
-
General: Well Developed, Well Nourished, No Apparent Distress, Comfortable and Conversant; Negative Respiratory Distress
HEENT: Normocephalic, Atraumatic, Nose Appears Normal and Ears Appear Normal; Negative Oxygen
Respiratory: Clear to Auscultation and Non Labored Respirations; Negative Accessory Resp Muscle Use
Cardiac: Regular Rhythm and S1/S2
GI: Soft, Nontender, Nondistended and Normal Bowel Sounds
Skin: Warm and Dry
Neuro: Awake, Alert, Oriented, AO x 3 and Nonfocal/Grossly Intact
Psych: Calm and Intact Judgement/Insight
Data Reviewed
-
Diagnostic Radiology: Image personally visualized and interpreted and Report Reviewed by me
Labs: Labs Reviewed by me
--- NOTE | 2025-04-06 11:48 | CM ---
Chart reviewed. Patient is waiting for a BiV PPM. Patient is independent of ADLS, lives with her in a 2 STH, 0 MAGGIE, 0 DME. Plan is for the patient to return home. CM to follow
--- NOTE | 2025-04-06 12:42 | PTCARENOTE ---
Received pt at change of shift resting in bed. NSR on the monitor. HR in the 60's. Right radial and Right Femoral sites C,D,I. Positive pulses. No bleeding or hematoma noted at this time. Denies any pain or SOB. Pt maintains NPO status for pacemaker
placement. Informed pt to call RN with any questions/concerns. Call lodr within reach.
--- NOTE | 2025-04-06 13:21 | PTCARENOTE ---
report given to cardiac cath lab technologist. patient remained NPO, CHG wipes done.
--- NOTE | 2025-04-06 16:11 | ITS.CL.PACE ---
Hog [employer]inger - Pacemaker Implant
Pacemaker Implant
Procedure Report:
Coronary sinus lead placement attempt with left bundle branch pacing Permanent Pacemaker Placement
Ms. Calderon is a 74 years old woman with severe bradycardia and LBBB with mild LV systolic dysfunction presented with long pauses with symptoms is here in EP lab for pacemaker implantation.
Indications:
Conduction disease with sick sinus syndrome and tachy renaldo syndrome and chronic LBBB
Date of the Procedure:
04/06/25
Pre-Operative Diagnosis:
Sick sinus syndrome and tachy renaldo syndrome and chronic LBBB
Post-Operative Diagnosis: Sick sinus syndrome and tachy renaldo syndrome and chronic LBBB
Procedure Performed: TURBO ELECTRIC OPERATOR-P with Conduction system pacing Pacemaker implantation
Performing Physician:
Christiano Calderon MD
Assistants:
EP staff
Anesthesia:
See anesthesia records
Detailed Description of the Procedure:
The patient was identified using hospital identification and informed consent obtained for the procedure. The risks were explained to the patient and the family including, but not limited to: Bleeding, infection, arrhythmia, stroke,
vascular/cardiac/lung puncture, surgery, pacemaker dependency/device malfunction. All questions were answered.
Anesthesia service provided sedation as reported separately. Antibiotics administered IV for risk of bacterial colonization. After obtaining informed and written consent, the patient was brought to the electrophysiology laboratory.
The initial rhythm was sinus rhythm.
The left chest was prepped from the nipple to the angle of the jaw with chlorhexidine, and draped following sterile technique in usual routine.�
A surgical pause and time out was performed immediately prior to the procedure with review of her medical history, recent labs, allergies and medications with site of procedure identified and consent noted in the chart. Antibiotics pre operatively
given. All team members concurred.
The left arm and shoulder venogram was done and the route of the veins were identified.
The left infraclavicular region was prepped and draped in the usual sterile fashion. Local anesthesia was administered subcutaneously using 1% lidocaine / Bupivacaine. The left axillary vein was accessed using micropuncture apparatus and the
procedure was repeated for CS acess. The vascular sheaths were introduced for lead access. Guidewires were placed and were advanced into the right ventricle and the right atrium.
The CS was cannulated using radiofocus glidewire. The Glidewire was not able to advance beyond the Thebesian valve and distal CS was not cannulated. Multiple attempts were made in PAYAN and JAPANESE without success as the glide wire kept on dislodging from
the CS. Decision was made to proceed with conduction system pacing system.
The CS pacing lead was removed and attention was given to conduction system pacing.
The guide wire was advanced to the RA and was crossed through the tricuspid valve into the RV. The preformed curved long hemostatic peel away HIS sheath was advanced into the RV cavity. A left bundle pacing wire was advanced into the sheath to the
tip with ventricular signals noted with unipolar manner. The HIS location was identified under guidance of the flouroscopy and the pacing wire signals. The sheath with the pacing lead was moved deeper into the RV cavity on the septum at a more
inferior and distal to the HIS signals.
Once adequate signals were noted on the electrograms of the pacing lead in the sheath with W pattern signals on the RV septum, the lead was advanced and clockwise turns were done under fluoroscopic guidance. The septum was engaged and the lead was
paced intermittently after every 2-3 turns. The Impedance of the lead was measured that came down to around 600 Ohm.
The ventricular capture was monitored throughout and the captures gradually changed from RV pacing to non-selective pacing to LBB pacing. The QRS was around 100 msec but the V1 did not show LBB pacing likely due to the presence of LBBB.
The long guiding sheath was cut and removed from the RV without change in lead position, impedance, sensing, or capture.
A pursestring suture using 2-0 Vicryl was placed at the insertion of the leads. The lead was sutured to the underlying pectoralis fascia with 2-0 Ethibond stitches.
Then the attention was given to atrial pacing lead. The atrial lead was deployed in the RAA and anchored with passive fixation. Excellent sensing, thresholds and impedance noted.
Some oozing was seen at access sites. This was managed with manual pressure and a loose pursestring suture.�
The leads were attached to the pulse generator in standard configuration with acceptable sensing and threshold parameters. The pocket was created using blunt dissection. Excellent hemostasis achieved. The pocket was irrigated with antibiotic
solution; the pocket was inspected with no active bleeding noted. The device and the leads were placed in the pocket.
Deep subcutaneous tissues were closed with three layers of 2-0 VLoc sutures and the dermis was reopposed using a running 4-0 Monocryl subcuticular suture. A pressure dressing was applied. Sponge counts / sharp counts were appropriate.
Procedure End:
The procedure was tolerated well. Aquacel bandaged was applied. A pressure dressing was applied.
Estimated Blood loss:
10 cc
Specimens Removed:
No cultures and no specimens were obtained. No intraoperative pathology was identified.
Urine output:
None
Packs / Drains/ Tubes:
None
Instrument / Sponge Count Correct:
Yes
Flouro time:
17min /13.1 Gycm2
Complications of the Procedure:
None
Condition of Patient at Time of Transfer:
Hemodynamically stable with no neurological or vascular compromise.
Device information:�
Generator: TranSwitch; Model: [id number]; Serial # [id number]
����������� Atrial Lead: [employer] eVillages; Model: 4574-45; Serial # [id number]
����������������������� Measured data in the right atrium was sensing of 1.9 mV and, impedance of 760 ohms and threshold of 0.5 V at 0.4ms�
����������� RV LBB pacing lead: Medtronic; Model: 3830-69; Serial # [id number]
����������������������� Measured data on the RV lead was sensing of 20 mV, impedance of 817 ohms and threshold of 0.5 V at 0.4ms�
PROGRAMMING PARAMETERS:�
Renaldo parameter settings were DDDR 60-130 �
����������� Paced AV interval: 120ms
����������� Sensed AV interval: 100 ms.
����������� Rate Adaptive A-V Interval: on
����������� Mode switch On
�
Summary:
Successful implantation of MRI compatible conduction system pacing system with implantation and attempt of CS lead placement
Results/Recommendations:
-Please follow up CXR�
1. Please provide patient with adequate pain control�
Instructions to be given to patient:�
- Please follow up with [facility] at [address] [place] [address] ([phone]) to get your wound checked in 2 weeks of your discharge. Then follow with
- Do not wet incision site until after it is evaluated at cardiology clinic. No baths or showers until then. Sponge baths / showers are OK but dab dry the dressing after it is wet.�
- Allow 'steri strips' to fall off on their own�
- Do not lift left elbow above shoulder, particularly with sudden jerking movements, for 1 month�
- Do not lift anything weighing more than 5 pounds with the left arm for 1 month�
- If you notice any fevers, shortness of breath, lightheadedness, chest pain, or worsening swelling in the wound site, please contact the arrhythmia clinic, contact your veterinarian laboratory animal care, or present to the hospital for evaluation.�
Christiano Calderon MD
Electrophysiology
--- NOTE | 2025-04-06 16:39 | PTCARENOTE ---
Received pt from EP lab. Pacemaker site with Misty Servin I. EKG completed. monitor shows V paced. VSS. Immobilizer on. Discussed post pacemaker instructions. Pt verbalized understanding. Call lord within reach.
[2025-04-06] MEDS: LOVENOX 40 MG SC (18:20)
[2025-04-06] MEDS: TYLENOL 650 MG PO (18:55)
[2025-04-06] MEDS: ULTRAM 25 MG PO (21:31)
[2025-04-06] MEDS: PROTONIX 40 MG PO (22:24)
[2025-04-06] MEDS: DESYREL 100 MG PO (22:24)
[2025-04-06] MEDS: LIPITOR 40 MG PO (22:24)
[2025-04-06] MEDS: LUVOX 100 MG PO (22:24)
[2025-04-06] MEDS: ANCEF 5 IV (22:24)
[2025-04-07] VITALS (12 sets, daily range): BP systolic 111–140; BP diastolic 56–80; PULSE 61–64
--- NOTE | 2025-04-07 01:32 | PTCARENOTE ---
Tele remains Vpaced, and occasional AV paced. HR in the 60s at rest. BP stable, pt sating 97-98% RA. Lungs clear throughout. Left anterior chest dressing C/D/I, left arm remains in immobilizer. Patient educated on activity restrictions, and
verbalized understanding. Right radial site ERIC, and right groin site C/D/I. Patient c/o pain at the surgical site described it as 'muscular pain'. Patient had already received Tylenol w/out relief. This RN notified Lourdes Vickers CYBER WORKFORCE DEVELOPER AND MANAGER, and orders
obtained/carried out for 25mg Ultram. Medication administered--see MAR for further details. Patient w/ good relief. Pain went from a 5 to a 2. Patient aware of POC, and can make needs known. Call lord in reach.
[2025-04-07 04:00] LABS: Hematocrit 30.3 % (37.0-47.0); Hemoglobin 9.8 g/dL (12.0-16.0); Mean Corp Hgb Conc. 32.3 g/dL (33.0-37.0); Mean Corpuscular Hgb 29.7 pg (27.0-31.0); Mean Corpuscular Volume 91.8 fL (81.0-99.0); Mean Platelet Volume 10.3 fL (7.4-10.4); Platelet Count 201 10^3/uL (130-400); Red Cell Dist. Width 15.2 % (11.5-14.5); White Blood Cell Count 5.4 10^3/uL (4.8-10.8)
[2025-04-07 04:24] LABS: Blood Urea Nitrogen 17 mg/dl (7-17); Calcium 9.8 mg/dl (8.4-10.2); Carbon Dioxide 20 mmol/L (22-30); Chloride 115 mmol/L (98-107); Estimated Creatinine Clearance 51 ml/min; Glucose 77 mg/dl (70-99); Potassium 3.8 mmol/L (3.5-5.1); Sodium 142 mmol/L (135-145); eGFR 59.12
[2025-04-07] MEDS: ANCEF 5 IV (06:10)
--- NOTE | 2025-04-07 08:32 | W.PN.CD ---
Today's Communication / Plan
-
Post pacemaker mild selling btu nontender. Overall ine
Patitn deels well
Will plan for post pacemaker follow up
Impression / Plan
-
74 yo female with PMH of LBBB, HTN, hyperlipidemia is admitted with SOB, dizziness.
# SOB, dizziness
-exam not consistent with HF
-echo 04/05/25 showed normal BiV with mild and mild AI.
-lexiscan nuclear stress test 04/05/25 - showed small area of ischemia involving the inferior wall and small apical infarct.
-Systolic function is mildly reduced. The ejection fraction is 44%.
-Left heart cath 04/05/25- radial could not advance the wire and pandey femoral access with normal cors but had midly reduced systolic functions. LVEF 45%
- SYMPTOMATIC GABRIELA NOTED. WILL SEE RESPONSE TO PACING
# Gabriela, sinus with LBBB
-Patient had some pauses and non-conducted P waves that reproduced her symptoms
-Symptomatic bradycardia. The EKG showed heart rate goes down to 30s. But the pauses give symptoms.
-Pacer implant 04/06/25 Medtronic
# HTN
-chronic: cont lisinopril
# Hyperlipidemia
-chronic: cont statin
Physical Exam
Vital Signs/Labs
Vital Signs
Temp Pulse Resp BP Pulse Ox
97.8 F 61 20 127/57 95
04/07/25 07:56 04/07/25 06:00 04/07/25 07:56 04/07/25 02:58 04/07/25 07:56
04/06/25 04/07/25 04/08/25
06:59 06:59 06:59
Actual Weight 78.3 kg
04/07/25 03:25
04/07/25 03:25
Magnesium 2.1 mg/dl (1.6-2.3) 04/04/25 03:08
Free T4 1.40 ng/dl (0.78-2.19) 04/03/25 09:43
04/03/25
09:43
Iiz-I-Lasjgxjzwrw Pept 1510
Physical Exam
Constitutional: No acute distress
Cardiovascular: Rhythm & rate is regular
Respiratory: Wheeze Absent and Rhonchi Absent
GI: Soft
Neuro/Psych: Alert
Other: Cardiac Device Site (bandage intact and dry. mild swelling withour tenderness )
Data Reviewed
-
Date of Service: April 07, 2025
Medical Decision Making: Reviewed Test Results
X-Ray/CT/US/MRI/NUC/PET: Report Reviewed by me
Medical Tests (PFT, Pathology etc): Report Reviewed by me
Labs: Labs Reviewed by me
[2025-04-07] MEDS: NORVASC 10 MG PO (09:01)
[2025-04-07] MEDS: ZESTRIL 5 MG PO (09:02)
[2025-04-07] MEDS: LOPID 600 MG PO (09:02)
[2025-04-07 10:27] LABS: Glucose - Point of Care 162 mg/dl (70-99)
--- NOTE | 2025-04-07 10:28 | PTCARENOTE ---
pt c/o of lightheaded, HR 60, BP 111/56, blood sugar 162. Dr Serrano and Dr Mckinnon made aware. Will continue to monitor.
--- NOTE | 2025-04-07 11:06 | W.PN.HOSP.TC ---
Addendum entered and electronically signed by Janet Mckinnon MD 04/07/25 15:59:
total DC time 40 min
Addendum entered and electronically signed by Janet Mckinnon MD 04/07/25 15:27:
Per PT, patient is negative for vestibular therapy.
Can start trial of meclizine as needed for dizziness.
Of note, CT head unrevealing.
Okay for DC
Discussed with RN
Total DC time 45 minutes
Original Note:
Today's Communication/Plan
-
see A/P
Assessment / Plan
Assessment / Plan
HPI: 74-year-old female with past medical history of MS (not currently on any medications), abdominal aortic aneurysm (diagnosed 20 years ago, managed with blood pressure control and not surgery), reflux; p/w SOB for weeks, heart racing/palpitations
and was found to be bradycardic in the ED.
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
A/P:
# Symptomatic sinus bradycardia
tele monitor
Card on board, s/p PPM for Symptomatic bradycardia 04/06
# SOB, possibly related to symptomatic bradycardia
proBNP 1510
echo unrevealing: Normal biventricular size and systolic function without regional wall motion abnormality. Stage I diastolic dysfunction suggestive of abnormal relaxation. Compared to prior from August 09, 2016, no significant change.
s/p Stress test, small area of ischemia involving the inferior wall and small apical infarct. Stress Risk is moderate risk study (1 - 3% RI or /year).
s/p cardiac cath 04/05, Normal coronary arteries
s/p BiV PPM 04/06
of note, CXR No acute cardiopulmonary process.
# Dizziness, pt denies to vertigo/tinnitus
Orthostatic VS WNL
could this be inner ear/ BPPV?
PT eval for vestibular therapy
Check CT head
# AAA
CT AP showed no abdominal aortic aneurysm or dissection.
# history of MS (not currently on any medications)
# GERD
PPI
# Possible subclinical hyperthyroidism
TSH 4.89, FT4 1.40, recc to follow up TSH reflex FT4 in 4-6 weeks with PCP
# Chronic insomnia
Cont SEMICONDUCTOR BONDER trazodone at decreased dose 100 mg HS (SEMICONDUCTOR BONDER 150 mg HS), pt agreeable
DVT ppx: Lovenox SQ
FC
DW RN
Anticipated Discharge: Within 24 hours
Subjective/Interval History
-
Date of Service: April 07, 2025
Objective Data
-
Labs:
Laboratory Results
04/07/25
03:25
WBC 5.4
Hgb 9.8 L
Hct 30.3 L
Plt Count 201
Sodium 142
Potassium 3.8
Chloride 115 H
Carbon Dioxide 20 L
BUN 17
Creatinine 1.0
Glucose 77
Calcium 9.8
Vital Signs:
Vital Signs
Temp Pulse Resp BP Pulse Ox
36.6 C 64 20 111/56 95
04/07/25 07:56 04/07/25 10:22 04/07/25 07:56 04/07/25 10:22 04/07/25 07:56
I&O
04/06/25 04/07/25 04/08/25
06:59 06:59 06:59
Intake Total 480 / 480 360 / 360
Balance 480 / 480 360 / 360
Review of Systems
-
History Source: Patient
All other systems: Reviewed and negative
Respiratory: Denies Trouble Breathing
Neuro: Reports Dizzy and Other (denies to vertigo, tinnitus )
Physical Exam
-
General: Well Developed, Well Nourished, No Apparent Distress, Comfortable and Conversant; Negative Respiratory Distress
HEENT: Normocephalic, Atraumatic, Nose Appears Normal and Ears Appear Normal; Negative Oxygen
Respiratory: Clear to Auscultation and Non Labored Respirations; Negative Accessory Resp Muscle Use
Cardiac: Regular Rhythm and S1/S2
GI: Soft, Nontender, Nondistended and Normal Bowel Sounds
Skin: Warm and Dry
Neuro: Awake, Alert, Oriented, AO x 3 and Nonfocal/Grossly Intact
Psych: Calm and Intact Judgement/Insight
Data Reviewed
-
Diagnostic Radiology: Image personally visualized and interpreted and Report Reviewed by me
Labs: Labs Reviewed by me
--- NOTE | 2025-04-07 11:42 | CM ---
Chart reviewed. Patient is independent of ADLS, lives with her in a [address], 0 MAGGIE, 0 DME. Plan is for the patient to return home. CM to follow
--- NOTE | 2025-04-07 15:32 | W.DCSUMMARY ---
Discharge Summary
Discharge Data
Date of Admission: 04/03/25
Date of Discharge: 04/07/25
-
Pending Results: No
Hospital Course
Principal Diagnosis:
Symptomatic sinus bradycardia
Shortness of breath, possibly related to symptomatic bradycardia
Dizziness
Chronic Diagnoses:�
AAA. CT AP this admission showed no abdominal aortic aneurysm or dissection.
History of multiple sclerosis (not currently on any medications)
Gastroesophageal reflux disease
Possible subclinical hyperthyroidism (TSH 4.89, FT4 1.40, follow up TSH reflex FT4 in 4-6 weeks with PCP)
Chronic insomnia on trazodone (decreased from 150 to 100 mg HS this admission)
Consultations:�
Cardiology
Procedures:�
Cardiac catheterization 04/05/2025: normal coronaries
Biventricular pacemaker placement on 04/06/2025
Clinical course:�
This is a 74-year-old female with past medical history as stated above, who presented with shortness of breath ongoing for few weeks associated with palpitation.
Problem 1:
Symptomatic sinus bradycardia.
She underwent pacemaker placement on 04/06/2025.
Problem 2:
SOB, possibly related to symptomatic bradycardia
proBNP 1510
echo unrevealing: Normal biventricular size and systolic function without regional wall motion abnormality. Stage I diastolic dysfunction suggestive of abnormal relaxation. Compared to prior from August 09, 2016, no significant change.
She underwent Stress test, showed small area of ischemia involving the inferior wall and small apical infarct. Stress Risk is moderate risk study (1 - 3% PA or /year).
She underwent cardiac cath 04/05, showed normal coronary arteries.
Of note, her CXR showed no acute cardiopulmonary process.
Problem 3:
Dizziness; patient denied to vertigo/tinnitus.
Her orthostatic vital sign was within normal limit.
Vestibular maneuver was negative per PT eval.
She was discharged home with meclizine as needed for dizziness.
Of note, her CT head showed no acute intracranial abnormality.
As for the rest of her medical problems, they were stable during her hospital stay.
Discharge Plan
-
Patient Disposition: Home (Routine Discharge)
Discharge Diagnosis/Procedures: Symptomatic sinus bradycardia status post dual chamber Pacemaker implant (04/06);
Dyspnea status post cardiac catheterization (04/05) which showed normal coronaries;
Dizziness (unclear etiology);
Possible subclinical hyperthyroidism (TSH 4.89, FT4 1.40)
Condition: Good
Diet: As tolerated, Low Fat, Low Cholesterol and Low Sodium
Activity: As tolerated
Driving Restrictions: No driving for 1 week
Blood Work: TSH reflex FT4 in 4-6 weeks with your PCP
Stand Alone Forms: DC Instructions- Cath/EP Lab, DC Inst - Implanted Device
Referrals:
Maryam Gautam NP [Specified Professional Personl] - 04/15/25 4:00 pm (Post device incision check appointment)
Yolis Beltran MD [Active] - in less than 1 week
Additional Discharge Medication Instructions: Take meclizine as needed for dizziness
Decrease trazodone from 150 to 100 mg at bedtime (new prescription can be provided by your PCP)
Prescriptions:
New
meclizine 12.5 mg tablet
12.5 mg PO TID PRN (Reason: dizziness) Qty: 30 0RF
Continued
atorvastatin 40 MG tablet
40 mg PO HS
gemfibrozil 600 MG tablet
600 mg PO BID
cyanocobalamin (vitamin B-12) 1,000 MCG tablet
1,000 mcg PO DAILY
lisinopril 5 MG tablet
5 mg PO DAILY Qty: 20 0RF
Fluvoxamine Maleate 100 MG Tablet
100 mg PO HS
amlodipine 10 mg Tablet
10 mg PO DAILY
Changed
trazodone 150 MG tablet
100 mg PO HS Qty: 0 0RF
Discharge Orders:
Discharge Patient (As Directed); Ordered 04/07/25
Ordered By: Janet Mckinnon
Care Plan Goals
Care Plan Goals:
Problem: Readiness for enhanced knowledge related to diagnosis and treatment plan
Goal: Understand your diagnosis and treatment plan needs, including medications if applicable.
Instructions: Know your diagnosis, underlying causes and treatment plan options, including medications if applicable. Consult with your health care team to learn about your diagnosis and treatment plan, including medications if applicable.
Discharge Date and Time
Print Language: PASHTO
== END 2025-04-07 17:24 | disposition home or self-care (01) | DRG 243 ==
LOC: IVU 16:49
PROVIDERS: Internal Medicine Cardiovascular Disease; Internal Medicine Interventional Cardiology; ADMITTING PHYSICIAN Internal Medicine; CONSULT PHYSICIAN Internal Medicine; EMERGENCY PHYSICIAN Emergency Medicine
PROC: B2151ZZ Fluoroscopy of Left Heart using Low Osmolar Contrast (ICD-10-PCS; 2025-04-05)
PROC: 4A023N7 Measurement of Cardiac Sampling and Pressure, Left Heart, Percutaneous Approach (ICD-10-PCS; 2025-04-05)
PROC: 3E073KZ Introduction of Other Diagnostic Substance into Coronary Artery, Percutaneous Approach (ICD-10-PCS; 2025-04-05)
PROC: B2111ZZ Fluoroscopy of Multiple Coronary Arteries using Low Osmolar Contrast (ICD-10-PCS; 2025-04-05)
PROC: 4A12XM4 Monitoring of Cardiac Stress, External Approach (ICD-10-PCS; 2025-04-05)
PROC: 02H63JZ Insertion of Pacemaker Lead into Right Atrium, Percutaneous Approach (ICD-10-PCS; 2025-04-06)
PROC: 0JH637Z Insertion of Cardiac Resynchronization Pacemaker Pulse Generator into Chest Subcutaneous Tissue and Fascia, Percutaneous Approach (ICD-10-PCS; 2025-04-06)
PROC: 02HK3JZ Insertion of Pacemaker Lead into Right Ventricle, Percutaneous Approach (ICD-10-PCS; 2025-04-06)
DX: I49.5 Sick sinus syndrome (principal); I24.9 Acute ischemic heart disease, unspecified; G35 Multiple sclerosis; K21.9 Gastro-esophageal reflux disease without esophagitis; F51.04 Psychophysiologic insomnia; I44.7 Left bundle-branch block, unspecified; I10 Essential (primary) hypertension; Z87.891 Personal history of nicotine dependence; Z88.5 Allergy status to narcotic agent; E78.00 Pure hypercholesterolemia, unspecified; Z79.899 Other long term (current) drug therapy; F41.9 Anxiety disorder, unspecified; D64.9 Anemia, unspecified; E66.9 Obesity, unspecified; Z68.28 Body mass index [BMI] 28.0-28.9, adult; Z86.79 Personal history of other diseases of the circulatory system
CPT/HCPCS: 33208; 70450; 71045; 71046; 74174; 78452; 80048; 80053; 82962; 83735; 83880; 84439; 84443; 84484; 85025; 85027; 86850; 86900; 86901; 93005; 93017; 93306; 93458; 97162; 97166; 99152; 99153; 99285; A9500; C1760; C1769; C1785; C1887; C1892; C1894; C1898; J2785; Q9967

== ENCOUNTER 2025-05-25 12:26 | Emergency (ER) | payer MEDICARE, SELFPAY ==
[2025-05-25 12:34] VITALS: BP 155/67
[2025-05-25 13:52] VITALS: BP 155/68
--- NOTE | 2025-05-25 13:57 | ED.GENMED ---
History of Present Illness
General
Chief Complaint: Cardiac Symptoms
Source: patient
Time Seen by Provider: 05/25/25 13:49
History of Present Illness
History of Present Illness:
The patient is a 74-year-old female with a history of pacemaker implantation, presenting with symptoms similar to those experienced prior to her emergency visit. She reports difficulty in taking a deep breath and feeling lightheaded, described as a
woozy sensation rather than vertigo. The patient complains of a 'whooshing' sensation in her chest, a symptom noted before but previously undiagnosed. She expresses fatigue and lacks energy, describing it as the 'blahs.' The patient denies any
vomiting or abdominal pain. She observed these symptoms upon waking but noted an improvement today compared to her initial presentation.
Past History
Past History
ED Past Medical History: GERD, HTN, Hypercholesterolemia, Other (MS, TIA,), Other (Ischemic colitis) and Other (Left bundle branch block, anemia)
ED Past Surgical History: Gynecological
Social History
Tobacco: Former smoker
Alcohol: Occasional
Drug: None
Personal:
Living: with family
Employment: Employed
Family History
Family History: Other
Phy Exam
Physical Exam
Physical Exam:
General: Awake, Alert, Oriented X3. No acute distress. Appears stated age
Vitals: unremarkable
Head: Atraumatic
Eyes: Pupils equal, EOMI
Throat: Airway intact, no exudates
Neck: Trachea midline
Lungs: Clear and equal b/l
Heart: Regular rate, no murmurs
Abd: Soft, Nontender, No pulsatile mass
Neuro: Cranial nerves intact, muscle strength equal bilaterally, cerebellar exam normal
Skin: Warm, dry, no rash
Extremities: pulses equal b/l, no edema
Course
Orders/Labs/Results
Orders:
Orders
05/25/25 12:27
Electrocardiogram (*1) Urgent
Reason for Study: Chest Pain
EKG- Treatment ONCE
05/25/25 14:01
Complete Blood Count/With Diff Urgent
Comprehensive Metabolic Panel Routine
Troponin I Stat
Abnormal Lab Results
05/25/25
14:01
RBC 4.01 L 10^6/uL
(4.20-5.40)
Hgb 11.7 L g/dL
(12.0-16.0)
Hct 35.7 L %
(37.0-47.0)
MCHC 32.8 L g/dL
(33.0-37.0)
Eosinophils % 7.3 H %
(0-6)
Chloride 110 H mmol/L
(98-107)
Carbon Dioxide 21 L mmol/L
(22-30)
BUN 18 H mg/dl
(7-17)
05/25/25 14:01
05/25/25 14:01
Vital Signs
Initial and Last Documented VS:
Initial Vital Signs
Temp Pulse Resp BP Pulse Ox
98.1 F 75 18 155/67 97
05/25/25 12:34 05/25/25 12:34 05/25/25 12:34 05/25/25 12:34 05/25/25 12:34
Last Documented Vital Signs
Temp Pulse Resp BP Pulse Ox
98.1 F 60 16 139/81 97
05/25/25 12:34 05/25/25 14:00 05/25/25 14:00 05/25/25 14:00 05/25/25 13:59
*Pulse Oximetry
SaO2: 97
Oxygen Mode of Delivery: Room air
*EKG
Heart Rate: 72
Rate: normal
Rhythm: other (Atrial sensed ventricularly paced)
QRS Pattern: left bundle branch block
Ischemia: non-specific ST changes
*Jewel Grinder Interpretation
Rate: normal
Interpretation: abnormal
Rhythm: other (Atrial sensed ventricular paced)
ED Attending Note
-
Portions of this chart may have been created with voice recognition software.� Occasional wrong word or��sound alike� substitutions may have occurred due to the inherent limitations of voice recognition software.
Discharge Plan
Departure
Discharge Problem:
Dyspnea, Dizziness
Instructions: Dizziness, Chest Pain (DC)
Prescriptions:
No Action
atorvastatin 40 MG tablet
40 mg PO HS
gemfibrozil 600 MG tablet
600 mg PO BID
cyanocobalamin (vitamin B-12) 1,000 MCG tablet
1,000 mcg PO DAILY
lisinopril 5 MG tablet
5 mg PO DAILY Qty: 20 0RF
Fluvoxamine Maleate 100 MG Tablet
100 mg PO HS
amlodipine 10 mg Tablet
10 mg PO DAILY
trazodone 150 MG tablet
100 mg PO HS Qty: 0 0RF
meclizine 12.5 mg tablet
12.5 mg PO TID PRN (Reason: dizziness) Qty: 30 0RF
Referrals:
Yolis Beltran MD [Family Provider, Internal Medicine]
Interventions
Interventions:
*Risk Screen - Suicide Last Done: 05/25/25 12:34
*General Assessment Last Done: 05/25/25 12:34
*Neglect/Abuse Screening Last Done: 05/25/25 12:34
ED- Pulmonary Assessment Last Done: 05/25/25 14:08
ED- Cardiac Assessment Last Done: 05/25/25 14:08
Discharge Date and Time
Print Language: FAROESE
[2025-05-25 14:00] VITALS: BP 139/81
[2025-05-25 14:10] VITALS: BMI 30.8
[2025-05-25 14:10] LABS: Hematocrit 35.7 % (37.0-47.0); Hemoglobin 11.7 g/dL (12.0-16.0); Mean Corp Hgb Conc. 32.8 g/dL (33.0-37.0); Mean Corpuscular Volume 89.0 fL (81.0-99.0); Nucleated Red Blood Cells % 0 %; Platelet Count 209 10^3/uL (130-400); Red Cell Dist. Width 14.5 % (11.5-14.5)
[2025-05-25 14:37] LABS: ALT (SGPT) 12 U/L (0-35); AST (SGOT) 21 U/L (14-36); Albumin 3.8 g/dl (3.5-5.0); Alkaline Phosphatase 56 U/L (38-126); Blood Urea Nitrogen 18 mg/dl (7-17); Calcium 10.0 mg/dl (8.4-10.2); Carbon Dioxide 21 mmol/L (22-30); Chloride 110 mmol/L (98-107); Estimated Creatinine Clearance 59 ml/min; Glucose 80 mg/dl (70-99); Potassium 4.1 mmol/L (3.5-5.1); Sodium 137 mmol/L (135-145); Total Protein 6.3 g/dl (6.3-8.2); eGFR > 60.00
[2025-05-25 14:49] LABS: Troponin I < 0.012 ng/ml
[2025-05-25 15:00] VITALS: BP 136/61
[2025-05-25 16:01] VITALS: BP 153/82
== END 2025-05-25 17:07 | disposition home or self-care (01) ==
LOC: EMR 12:26
PROVIDERS: Emergency Medicine; EMERGENCY PHYSICIAN Emergency Medicine; FAMILY PHYSICIAN Student in an Organized Health Care Education/Training Program
DX: R42 Dizziness and giddiness (principal); R06.02 Shortness of breath; R53.83 Other fatigue; I44.7 Left bundle-branch block, unspecified; I10 Essential (primary) hypertension; E78.00 Pure hypercholesterolemia, unspecified; K21.9 Gastro-esophageal reflux disease without esophagitis; G35 Multiple sclerosis; K55.9 Vascular disorder of intestine, unspecified; D64.9 Anemia, unspecified; Z95.0 Presence of cardiac pacemaker; Z86.73 Personal history of transient ischemic attack (TIA), and cerebral infarction without residual deficits; Z87.891 Personal history of nicotine dependence; Z88.5 Allergy status to narcotic agent
CPT/HCPCS: 99285; 93288; 71046; 80053; 84484; 85025; 93005